=== PATIENT | male | born 1940 | race Caucasian/White ===

== ENCOUNTER 2024-09-16 19:55 | Outpatient (CLI) | payer MEDICARE ==
--- NOTE | 2024-09-18 10:21 | P.PCN ---
Description of Procedure: CLINICAL: Titration with positive air pressure has been done for correction of respiratory abnormalities during sleep. DESCRIPTION OF PROCEDURE: The standard montage for clinical polysomnography included the electroencephalogram, the electrocardiogram, the mentalis surface electromyography and Lead II cardiography. The respiratory battery consisted of measurements of nasal /buccal air flow, pressure transducer measurements from the nose, thoracic and /or abdominal effort and intercostal surface electromyography. Video monitoring has been done to check for any parasomnia events. Nocturnal oxyhemoglobin saturations were obtained by finger oximetry. Step-sparrow titration with positive airway pressure was utilized to control respiratory events. Raw data of sleep recording has been reviewed and is adequate. RESULTS: Sleep efficiency was decreased to 72.0%. Latency to sleep onset was normal at 24.5 minutes.]. Sleep architecture showed stage N1 was extremely short 0.3%, Delta sleep was absent 0%, REM sleep was significantly increased to 36.4%, possibly REM sleep rebound phenomenon. Heart rate was minimum 49 BPM, maximum 55 BPM, average 51 BPM. EMG showed 61.4 periodic limb movements per hour with 0.2 micriarousals per hour. PAP titration have been done with CPAP up to the pressure 11 cm H2O. The best results were at the pressure 10 cm H2O. Apnea hypopnea index reduced to 0.9. IMPRESSION: 1. Obstructive sleep apnea hypopnea syndrome on controle with PAP treatment. 2. Significant periodic limb movements have been documented. Please see other impressions from consultation. PLAN: 1. The patient will have treatment with positive air pressure equipment with the level of pressure AutoPap 512 cm H2O and should use it every night for the whole night. 2. Watching weight. 3. Sleep hygiene with regular time in bed for at least 8 hours. 4. No driving if feeling any sleepiness. 5. I will see the patient for follow up visit to explain the results of the test, recommendations, check compliance with treatment and make any necessary adjustment related to mask fitting, pressure and humidification. 6. Please check iron profile including ferritin level. Low level of iron may increase risk for periodic limb movements Thank you very much for allowing me to participate in the management of your patient. Sincerely, Mekhi Connor MD, PhD, FAASM Diplomat of [place] [employer] Sleep Medicine Board of [place] [employer] [facility] [place] cc: Jorge Coleman DO
== END 2024-09-17 05:15 | disposition home or self-care (01) ==
LOC: 3 N SLEEP 19:55
PROVIDERS: ATTEND Internal Medicine
DX: G47.33 Obstructive sleep apnea (adult) (pediatric) (principal); G47.61 Periodic limb movement disorder; Z99.89 Dependence on other enabling machines and devices
CPT/HCPCS: 95811

== ENCOUNTER → 2024-10-16 | Outpatient (CLI) | payer MEDICARE ==
[2024-10-16 15:04] VITALS: BP 149/82; PULSE 74; RESP 16; TEMP 97.7
--- NOTE | 2024-10-16 15:29 | P.PROGSL ---
Subjective DATE: 10/16/2024 FOLLOW UP VISIT. Patient with obstructive sleep apnea hypopnea syndrome return to sleep center for follow-up visit. Information from previous visit have been reviewed. Patient is using PAP equipment every night for the whole night, getting PAP supplies in time. The patient does not have significant problems with the mask, PAP unit and humidification. [place] sleepiness scale is 6, which is in the normal range. I checked information from PAP unit. PAP unit pressure 5-12, average 11.8 cm H2O. Usage is 90% % for more then 4 hours, average 7.1 hours per night. Leak is 0 l/m, which is in perfect range. Apnea Hypopnea Index is 6.0 for the last night and 8.6 for extended period of time. MEDICATIONS have been reviewed, please see below. During physical exam: GENERAL: A pleasant patient without any distress. VITAL SIGNS: Please see below, weight is 191 lbs. HEENT: PERRLA, EOMI.low position of soft palate, [place] 4 . NECK: Supple. No JVD. LUNGS: Clear to percussion and to auscultation. Good air exchange. No wheezing or rhonchi. HEART: S1, S2 regular. ABDOMEN: Soft and nontender.[] EXTREMITIES: No clubbing or cyanosis. NEWS PHOTOGRAPHER: Awake, alert, and oriented x3. No focal deficit. Impressions: 1. Obstructive sleep apnea-hypopnea syndrome. Patient demonstrated great compliance with treatment, benefiting from treatment. 2. Very mild obesity BMI 30.3. 3. Status post bilateral knee replacement. I increased range of the pressure to the level 5-16 cm of water. Plan: 1. Continue using PAP equipment every night for the whole night. 2. Sleep hygiene with regular time in bed for at least 7.5-8 hours 3. PAP unit should stay lower then position of the head. 4. Advised patient to remove all remaining water from humidifier canister daily and make it dry after each usage. Refill canister with fresh distilled water before each usage. 5. Watching weight. 6. Precautions related to driving. No driving if feel any sleepiness. 7. I will maintain prescription for PAP supplies including mask, tube, filters. 8. Follow up visit in 8 months or earlier if patient has any problems. Thank you very much for allowing me to participate in the management of your patient. Mekhi Connor MD, PhD, FAASM. Diplomat of [place] [employer], Sleep Medicine Board by [place] [employer] Manager Department [facility] [place] Objective - Vital Signs Vital Signs: Vital Signs Temp 97.7 F 10/16/24 15:03 Pulse 74 10/16/24 15:03 Resp 16 10/16/24 15:03 BP 149/82 10/16/24 15:03 Pulse Ox 96 10/16/24 15:03 FiO2
== END ==
LOC: 3 N SLEEP 14:50
PROVIDERS: ATTEND Internal Medicine
DX: G47.33 Obstructive sleep apnea (adult) (pediatric) (principal); E66.9 Obesity, unspecified; Z96.653 Presence of artificial knee joint, bilateral; Z68.30 Body mass index [BMI] 30.0-30.9, adult; Z99.89 Dependence on other enabling machines and devices
CPT/HCPCS: 99212